=== PATIENT | female | born 1995 | race Caucasian/White ===

== ENCOUNTER → 2017-05-28 | Emergency (ER) | payer OTHER ==
[~2017-05-28] VITALS: Ht 160 cm; Wt 59.0 kg
[~2017-05-28] MED LIST: STRATTERA40 MG PO
== END | disposition home or self-care (01) ==
LOC: ER 23:11
DX: K52.89 Other specified noninfective gastroenteritis and colitis (principal)

== ENCOUNTER 2018-01-23 06:27 | Emergency (ER) | payer OTHER ==
[~2018-01-23] VITALS: Ht 162.6 cm; Wt 59.9 kg
[2018-01-23] MEDS ORDERED: STRATTERA60 MG (06:31)
== END 2018-01-23 09:15 | disposition home or self-care (01) ==
LOC: ER 06:27
DX: S76.811A Strain of other specified muscles, fascia and tendons at thigh level, right thigh, initial encounter (principal); M62.838 Other muscle spasm; X50.9XXA Other and unspecified overexertion or strenuous movements or postures, initial encounter; Y93.89 Activity, other specified; Y92.89 Other specified places as the place of occurrence of the external cause; Y99.8 Other external cause status